=== PATIENT | male | born 1935 | race Caucasian/White ===

== ENCOUNTER 2018-09-22 14:12 | Day surgery (SDC) | payer MEDICARE, OTHER ==
[2018-09-22] VITALS (8 sets, daily range): BP systolic 89–159; BP diastolic 47–80
[~2018-09-22] VITALS: Ht 172.7 cm; Wt 75.6 kg
[2018-09-22] MEDS ORDERED: normal saline 1000ml 1,000 ML IV SCH (14:35)
[2018-09-22] MEDS ORDERED: diphenhydrAMINE 25mg capsule PO PRN (14:35)
[2018-09-22] MEDS ORDERED: LORazepam 0.5 MG tablet PO PRN (14:35)
[2018-09-22] MEDS ORDERED: LISI-600 PO (14:49)
[2018-09-22] MEDS ORDERED: ASPI-1265 PO (14:49)
[2018-09-22] MEDS ORDERED: ATOR20TA PO (14:49)
[2018-09-22] MEDS ORDERED: TERA10CA4 PO (14:49)
[2018-09-22] MEDS ORDERED: CLOP75TA15 PO (14:49)
[2018-09-22] MEDS ORDERED: FINA5TAB11 PO (14:49)
[2018-09-22 15:24] LABS: BASOPHILS % (AUTO) 0.3 % (0-1); EOSINOPHILS # (AUTO) 0.2 X10'3 (0-0.9); EOSINOPHILS % (AUTO) 2.5 % (0-6); HEMATOCRIT 37.5 % (42.0-52.0); HEMOGLOBIN 12.7 g/dl (14.0-17.9); LYMPHOCYTES # (AUTO) 1.2 X10'3 (1.1-4.8); LYMPHOCYTES % (AUTO) 18.9 % (21-51); MEAN CORPUSCULAR HEMOGLOBIN 31.3 PG (27.0-31.0); MEAN CORPUSCULAR HGB CONC 33.8 % (33.0-36.5); MEAN CORPUSCULAR VOLUME 92.6 FL (78-98); MEAN PLATELET VOLUME 7.1 FL (7.4-10.4); MONOCYTES # (AUTO) 0.6 X10'3 (0-0.9); NEUTROPHILS # (AUTO) 4.3 X10'3 (1.8-7.7); NEUTROPHILS % (AUTO) 68.3 % (42-75); PLATELET COUNT 237 X10'3 (140-440); RED BLOOD COUNT 4.05 X10'6 (4.70-6.10); RED CELL DISTRIBUTION WIDTH 12.8 % (11.5-14.5); WHITE BLOOD COUNT 6.3 X10'3 (4.5-11.0)
[2018-09-22 15:31] LABS: ANION GAP 11 (8-16); BLOOD UREA NITROGEN 16 MG/DL (7-18); BUN/CREATININE RATIO 21.3 (5.4-32.0); CALCIUM 9.5 MG/DL (8.5-10.1); CHLORIDE 97 MMOL/L (99-107); CREATININE 0.75 MG/DL (0.60-1.10); GLUCOSE 98 MG/DL (70-104); SODIUM 132 MMOL/L (135-145); eGFR > 90 ML/MIN
[2018-09-22 15:33] LABS: PROTHROMBIN TIME 10.4 SECONDS (9.0-12.0)
[2018-09-22] MEDS ORDERED: phenylephrine 10mg/ml inj. ONE (16:07)
[2018-09-22] MEDS ORDERED: iohexol 350 MG/ML 50ML vial IV ONE (16:08)
[2018-09-22] MEDS ORDERED: iohexol 350MG/ML 100ml bottle IV ONE (16:08)
[2018-09-22] MEDS ORDERED: heparin 1,000unit/ml 10ml vial 10 ML ONE (16:08)
[2018-09-22] MEDS ORDERED: atropine 0.1mg/ml 10ml syringe ONE (16:08)
[2018-09-22] MEDS ORDERED: DOPamine 400mg/D5W 250ml 250 ML IV ONE (16:08)
[2018-09-22] MEDS ORDERED: LIDOcaine 1% (10mg/ml)w/preservative injection 20ml MDV ONE (16:24)
[2018-09-22] MEDS ORDERED: hydrALAZINE 20mg/ml inj. IV ONE (16:41)
[2018-09-22] MEDS ORDERED: HYDROcodone/acetaminophen 5mg/325mg tablet PO PRN (17:20)
[2018-09-22] MEDS ORDERED: hydrALAZINE 20mg/ml inj. IV PRN (17:20)
[2018-09-22] MEDS ORDERED: HYDROcodone/acetaminophen 10/325mg tab PO PRN (17:20)
== END 2018-09-22 19:05 | disposition home or self-care (01) ==
LOC: SSTAY O 14:12
PROVIDERS: ATTEND Internal Medicine Interventional Cardiology
DX: I65.22 Occlusion and stenosis of left carotid artery (principal); I10 Essential (primary) hypertension; E78.5 Hyperlipidemia, unspecified; I70.0 Atherosclerosis of aorta; N40.0 Benign prostatic hyperplasia without lower urinary tract symptoms; Z72.89 Other problems related to lifestyle; Z92.21 Personal history of antineoplastic chemotherapy; Z87.01 Personal history of pneumonia (recurrent); Z85.818 Personal history of malignant neoplasm of other sites of lip, oral cavity, and pharynx; Z92.3 Personal history of irradiation; Z79.01 Long term (current) use of anticoagulants; Z79.82 Long term (current) use of aspirin; Z79.899 Other long term (current) drug therapy; Z87.891 Personal history of nicotine dependence; Z98.890 Other specified postprocedural states
CPT/HCPCS: 36222; 36415; 80048; 85025; 85610; A6257; C1760; J0360; J0461; J1265; J1644; J2001; J2370; J7030; Q0163; Q9967; 93005; A4620; C1769; C1894

== ENCOUNTER 2022-08-09 11:05 | Day surgery (SDC) | payer MEDICARE, OTHER ==
[2022-08-08 08:55] LABS: BASOPHILS % (AUTO) 0.4 % (0-1); EOSINOPHILS % (AUTO) 0.5 % (0-6); HEMATOCRIT 39.5 % (42.0-52.0); HEMOGLOBIN 13.8 g/dl (14.0-17.9); LYMPHOCYTES % (AUTO) 13.9 % (21-51); MEAN CORPUSCULAR HEMOGLOBIN 31.7 PG (27.0-31.0); MEAN CORPUSCULAR HGB CONC 34.9 g/dL (33.0-36.5); MEAN CORPUSCULAR VOLUME 90.8 FL (78-98); MEAN PLATELET VOLUME 6.4 FL (7.4-10.4); MONOCYTES # (AUTO) 0.7 X10'3 (0-0.9); MONOCYTES % (AUTO) 9.8 % (2-12); NEUTROPHILS # (AUTO) 5.5 X10'3 (1.8-7.7); NEUTROPHILS % (AUTO) 75.4 % (42-75); PLATELET COUNT 208 X10'3 (140-440); RED BLOOD COUNT 4.36 X10'6 (4.70-6.10); RED CELL DISTRIBUTION WIDTH 13.6 % (11.5-14.5); WHITE BLOOD COUNT 7.3 X10'3 (4.5-11.0)
[2022-08-08 09:03] LABS: ALBUMIN 4.3 G/DL (3.4-5.0); ANION GAP 5 (8-16); BLOOD UREA NITROGEN 15 MG/DL (7-18); BUN/CREATININE RATIO 17.6 (5.4-32.0); CALCIUM 9.5 MG/DL (8.5-10.1); CHLORIDE 96 MMOL/L (99-107); CHOL/HDL RATIO 1.9 (0.00-4.99); CHOLESTEROL 132 MG/DL (0-200); CREATININE 0.85 MG/DL (0.60-1.10); GLUCOSE 110 MG/DL (70-104); HDL CHOLESTEROL 71 MG/DL (35-60); LDL CHOLESTEROL 51 MG/DL (50-100); POTASSIUM 4.7 MMOL/L (3.5-5.1); SODIUM 130 MMOL/L (135-145); TOTAL CARBON DIOXIDE 28.9 MMOL/L (24-32); TRIGLYCERIDES 39 MG/DL (20-135); eGFR 85 ML/MIN
[2022-08-08 09:16] LABS: APTT 28 SECONDS (22-32)
[~2022-08-09] VITALS: Ht 172.7 cm; Wt 69.0 kg
[2022-08-09] VITALS (10 sets, daily range): BP systolic 138–165; BP diastolic 74–93
[~2022-08-09 11:05] MED LIST: ASPI-1265 PO; ATOR20TA PO; CLOP75TA15 PO; FINA5TAB11 PO; LISI20TA28 PO; TERA10CA4 PO
[2022-08-09] MEDS ORDERED: LORazepam 0.5 MG tablet PO PRN (11:20)
[2022-08-09] MEDS ORDERED: normal saline 1,000 ML IV SCH (11:20)
[2022-08-09] MEDS ORDERED: diphenhydrAMINE 25mg capsule PO PRN (11:20)
[2022-08-09] MEDS ORDERED: verapamil 2.5 mg/ml inj IV ONE (14:08)
[2022-08-09] MEDS ORDERED: LIDOcaine 1% (10mg/ml) 2ml vial ONE ×2 (14:08→14:14)
[2022-08-09] MEDS ORDERED: fentaNYL/PF 50MCG/1 ML 2ML syringe ONE (14:08)
[2022-08-09] MEDS ORDERED: midazolam 1 mg/ML 2ml injection ONE (14:08)
[2022-08-09] MEDS ORDERED: heparin 1,000unit/ml 10ml vial 10 ML ONE (14:08)
[2022-08-09] MEDS ORDERED: nitroGLYCERIN-Tridil 50MG/D5W 250 ML IV ONE (14:08)
[2022-08-09] MEDS ORDERED: iohexol 350MG/ML 100ml bottle IV ONE (14:09)
[2022-08-09] MEDS ORDERED: HYDROcodone/acetaminophen 10/325mg tab PO PRN (16:50)
[2022-08-09] MEDS ORDERED: HYDROcodone/acetaminophen 5mg/325mg tablet PO PRN (16:50)
[2022-08-12 08:26] LABS: ISTAT HGB ART 11.6 g/dl (14.0-17.9); ISTAT Hct ART 34 %PCV (42-52); ISTAT O2 SATURATION ARTERIAL 95 % (95-98); ISTAT SOURCE ART
[2022-08-12 08:26] LABS: ISTAT Hct MIX 36 %PCV (42-52); ISTAT O2 SATURATION MIX VENOUS 73 % (60-80); ISTAT SOURCE VEN
== END 2022-08-09 18:40 | disposition home or self-care (01) ==
LOC: SSTAY O 11:05
PROVIDERS: ATTEND Student in an Organized Health Care Education/Training Program
DX: I35.0 Nonrheumatic aortic (valve) stenosis (principal); I25.10 Atherosclerotic heart disease of native coronary artery without angina pectoris; I10 Essential (primary) hypertension; E78.5 Hyperlipidemia, unspecified; Z79.01 Long term (current) use of anticoagulants; Z79.899 Other long term (current) drug therapy
CPT/HCPCS: 36415; 80048; 80061; 82803; 85014; 85025; 85610; 85730; 93005; 93456; 99152; C1769; C1894; J1644; J2250; J3010; J3490; J7030; Q0163; Q9967; 99153; A4620; A6258; A6449; C1751

== ENCOUNTER 2022-10-16 12:01 | Outpatient (CLI) | payer MEDICARE, OTHER ==
[~2022-10-16 12:01] MED LIST changes: -CLOP75TA15 PO
[2022-10-16 12:45] LABS: APTT 29 SECONDS (22-32); BASOPHILS % (AUTO) 0.6 % (0-1); EOSINOPHILS # (AUTO) 0.1 X10'3 (0-0.9); EOSINOPHILS % (AUTO) 1.1 % (0-6); HEMATOCRIT 35.8 % (42.0-52.0); HEMOGLOBIN 12.2 g/dl (14.0-17.9); LYMPHOCYTES # (AUTO) 0.8 X10'3 (1.1-4.8); LYMPHOCYTES % (AUTO) 12.3 % (21-51); MEAN CORPUSCULAR HEMOGLOBIN 31.3 PG (27.0-31.0); MEAN PLATELET VOLUME 6.5 FL (7.4-10.4); MONOCYTES # (AUTO) 0.7 X10'3 (0-0.9); MONOCYTES % (AUTO) 11.7 % (2-12); NEUTROPHILS # (AUTO) 4.5 X10'3 (1.8-7.7); NEUTROPHILS % (AUTO) 74.3 % (42-75); PLATELET COUNT 185 X10'3 (140-440); RED BLOOD COUNT 3.89 X10'6 (4.70-6.10); RED CELL DISTRIBUTION WIDTH 13.6 % (11.5-14.5); WHITE BLOOD COUNT 6.1 X10'3 (4.5-11.0)
[2022-10-16] MEDS ORDERED: IODIXANOL 320 MG/ML INFUS..BTL 100ML IV ONE (12:45)
[2022-10-16 12:47] LABS: ALANINE AMINOTRANSFERASE 15 U/L (12-78); ALBUMIN/GLOBULIN RATIO 1.2 (1.1-1.5); ALKALINE PHOSPHATASE 102 IU/L (46-116); ANION GAP 6 (8-16); ASPARTATE AMINO TRANSFERASE 24 U/L (10-37); BILIRUBIN,TOTAL 0.7 MG/DL (0.1-1.0); BLOOD UREA NITROGEN 16 MG/DL (7-18); CALCIUM 9.1 MG/DL (8.5-10.1); CHLORIDE 97 MMOL/L (99-107); CREATININE 0.84 MG/DL (0.60-1.10); GLUCOSE 113 MG/DL (70-104); POTASSIUM 4.6 MMOL/L (3.5-5.1); SODIUM 130 MMOL/L (135-145); TOTAL CARBON DIOXIDE 27.2 MMOL/L (24-32); TOTAL PROTEIN 7.3 G/DL (6.4-8.2); eGFR 86 ML/MIN
[2022-10-16] MEDS ORDERED: metoprolol tartrate 1mg/ml inj IV ONE (13:19)
[2022-10-16 13:20] VITALS: BP 134/70
[2022-10-16 13:30] VITALS: BP 129/94
== END 2022-10-16 23:59 | disposition home or self-care (01) ==
LOC: RAD 12:01
PROVIDERS: ATTEND Internal Medicine Cardiovascular Disease
DX: Z01.818 Encounter for other preprocedural examination (principal); M47.815 Spondylosis without myelopathy or radiculopathy, thoracolumbar region; J84.10 Pulmonary fibrosis, unspecified; J92.9 Pleural plaque without asbestos; I35.0 Nonrheumatic aortic (valve) stenosis; I65.29 Occlusion and stenosis of unspecified carotid artery; Z87.891 Personal history of nicotine dependence; Z79.899 Other long term (current) drug therapy
CPT/HCPCS: 36415; 71046; 71275; 74174; 80053; 85025; 85610; 85730; 94010; 94727; 94729; J3490; Q9967

== ENCOUNTER 2022-11-21 06:30 | Inpatient (IN) | payer MEDICARE, OTHER ==
[2022-11-14 10:43] LABS: CLARITY,URINE CLOUDY (Clear); COLOR,URINE YELLOW (Yellow); GLUCOSE, URINE NEGATIVE (Neg); KETONES,URINE NEGATIVE (Neg); LEUKOCYTE ESTERASE ,URINE NEGATIVE (Neg); NITRITES, URINE NEGATIVE (Neg); OCCULT BLOOD,URINE NEGATIVE (Neg); PROTEIN,URINE NEGATIVE (Neg)
[2022-11-14 10:44] LABS: UA COLLECTION TYPE VOIDED
[2022-11-14 10:45] LABS: BASOPHILS % (AUTO) 0.6 % (0-1); EOSINOPHILS # (AUTO) 0.1 X10'3 (0-0.9); EOSINOPHILS % (AUTO) 1.1 % (0-6); LYMPHOCYTES # (AUTO) 0.7 X10'3 (1.1-4.8); LYMPHOCYTES % (AUTO) 11.6 % (21-51); MEAN CORPUSCULAR HEMOGLOBIN 30.6 PG (27.0-31.0); MEAN CORPUSCULAR HGB CONC 34.5 g/dL (33.0-36.5); MEAN CORPUSCULAR VOLUME 88.7 FL (78-98); MEAN PLATELET VOLUME 6.4 FL (7.4-10.4); MONOCYTES # (AUTO) 0.7 X10'3 (0-0.9); NEUTROPHILS # (AUTO) 4.5 X10'3 (1.8-7.7); NEUTROPHILS % (AUTO) 75.7 % (42-75); PRE OP HEMATOCRIT 34.9 % (42.0-52.0); PRE OP HEMOGLOBIN 12.1 g/dL (14.0-17.9); PRE OP PLATELET COUNT 245 X10'3 (140-440); RED BLOOD COUNT 3.93 X10'6 (4.70-6.10); RED CELL DISTRIBUTION WIDTH 12.7 % (11.5-14.5)
[2022-11-14 10:51] LABS: MUCUS STRANDS MANY /LPF (Neg); SQUAMOUS EPITHELIAL CELL,UR FEW /LPF (FEW)
[2022-11-14 10:52] LABS: RBC,URINE 0-2 /HPF (0-2); WBC,URINE 0-4 /HPF (0-4)
[2022-11-14 10:53] LABS: BACTERIA,URINE FEW /HPF (Neg)
[2022-11-14 11:00] LABS: ALBUMIN 3.7 G/DL (3.4-5.0); ALBUMIN/GLOBULIN RATIO 1.1 (1.1-1.5); ALKALINE PHOSPHATASE 110 IU/L (46-116); BLOOD UREA NITROGEN 18 MG/DL (7-18); BUN/CREATININE RATIO 22.8 (5.4-32.0); CALCIUM 9.4 MG/DL (8.5-10.1); CHLORIDE 97 MMOL/L (99-107); CREATININE 0.79 MG/DL (0.60-1.10); PRE OP ALT 24 U/L (30-65); PRE OP ANION GAP 6 (8-16); PRE OP AST 30 U/L (10-37); PRE OP BILIRUB, TOTAL 0.7 MG/DL (0.0-1.0); PRE OP GLUCOSE 129 MG/DL (70-104); PRE OP POTASSIUM 4.1 MMOL/L (3.4-5.1); PRE OP SODIUM 131 MMOL/L (135-145); TOTAL CARBON DIOXIDE 28.2 MMOL/L (24-32); TOTAL PROTEIN 7.1 G/DL (6.4-8.2); eGFR > 90 ML/MIN
[2022-11-14 11:28] LABS: PRE OP INR 1.1 INR; PRE OP PROTIME 11.3 SECONDS (9.0-12.0)
[2022-11-21] VITALS (18 sets, daily range): BP systolic 123–177; BP diastolic 54–79
[~2022-11-21] VITALS: Ht 172.7 cm; Wt 63.2 kg
[~2022-11-21 06:30] MED LIST changes: -ASPI-1265 PO; +LEVO25TA7 PO; +aspirin 325mg tablet PO ONE; +cefazolin/dext.iso 2gm/50ml 50 ML IV ONE; +famotidine 20mg tablet PO ONE; +nitroPRUSSIDE (NIPRIDE) (200MCG/ML) 100ML Drip IV SCH; +ondansetron/PF 4mg/2ml inj IV PRN; +phenylephrine inj 50 MG in normal saline 250ml IV solN IV SCH; +ringers solution, lacted 1,000 ML IV SCH; +vancomycin/NS 1 GM ADD-VANTAGE 250 ML IV ONE
[2022-11-21] MEDS ORDERED: LIDOcaine 1% (10mg/ml) 2ml vial ONE ×2 (06:49→07:27)
[2022-11-21] MEDS ORDERED: protamine sulfate 10mg/ml inj. ONE ×2 (07:48→10:13)
[2022-11-21 08:01] LABS: ISTAT ANION GAP 11 (8-12); ISTAT BUN 13 mg/dL (7-18); ISTAT CL 98 mmol/L (99-107); ISTAT CREATININE 0.7 mg/dL (0.8-1.3); ISTAT GLUCOSE 96 mg/dL (70-104); ISTAT HGB 10.9 g/dl (14.0-17.9); ISTAT Hct 32 %PCV (42-52); ISTAT IONIZED CALCIUM 1.22 mmol/L (1.03-1.32); ISTAT K 3.9 mmol/L (3.5-5.1); ISTAT NA 134 mmol/L (135-145); ISTAT TOTAL CO2 25 mmol/L (24-32); ISTAT eGFR > 90 ML/MIN; POC BUN/CREATININE RATIO 18.6 (5.4-32.0)
[2022-11-21] MEDS ORDERED: iohexol 350MG/ML 100ml bottle IV ONE (08:32)
[2022-11-21] MEDS ORDERED: heparin 1,000 UNITS/NS 500ml 1,500 ML ONE (08:32)
[2022-11-21] MEDS ORDERED: LIDOcaine 1% 30ml preserv. free vial ONE (08:33)
[2022-11-21] MEDS ORDERED: fentaNYL/PF 50MCG/1 ML 2ML syringe ONE (08:41)
[2022-11-21] MEDS ORDERED: midazolam 1 mg/ML 2ml injection ONE ×2 (08:42→09:03)
[2022-11-21] MEDS ORDERED: propofol inj 20 ML IV ONE ×2 (08:59)
[2022-11-21] MEDS ORDERED: 0.9 % SODIUM CHLORIDE 10 ML VIAL ONE ×2 (08:59→09:16)
[2022-11-21] MEDS ORDERED: ePHEDrine 50MG/ML INJ. ONE (09:16)
[2022-11-21] MEDS ORDERED: proCHLORperazine 10 MG/2 ml inj IV PRN ×2 (09:50→10:05)
[2022-11-21] MEDS ORDERED: acetaminophen 325mg tablet PO PRN (09:50)
[2022-11-21] MEDS: normal saline 1000ml 1,000 ML IV SCH (09:50)
[2022-11-21] MEDS ORDERED: hydrALAZINE 20mg/ml inj. IV PRN ×2 (09:50→10:05)
[2022-11-21] MEDS ORDERED: potassium Cl 20 mEq SR tablet PO PRN (09:50)
[2022-11-21] MEDS ORDERED: potassium CL 10mEq/100ml bag 100 ML IV PRN (09:50)
[2022-11-21] MEDS ORDERED: potassium Cl 40MEQ/1/2NS 520ml 520 ML IV PRN (09:50)
[2022-11-21] MEDS ORDERED: pantoprazole 40mg Tablet.DR PO PRN (09:50)
[2022-11-21] MEDS ORDERED: potassium Cl 40MEQ/270ML bag 250 ML IV PRN (09:50)
[2022-11-21] MEDS ORDERED: magnesium 2GM in 50ml NS 50 ML IV PRN (09:50)
[2022-11-21] MEDS ORDERED: ondansetron/PF 4mg/2ml inj IV PRN ×2 (09:50→10:05)
[2022-11-21] MEDS ORDERED: ALPRAZolam 0.25mg tablet PO PRN (09:50)
[2022-11-21] MEDS ORDERED: potassium Cl 20mEq/100mL bag 100 ML IV PRN (09:50)
[2022-11-21] MEDS ORDERED: diphenhydrAMINE 25mg capsule PO PRN (09:50)
[2022-11-21] MEDS ORDERED: HYDROcodone/acetaminophen 5mg/325mg tablet PO PRN (09:50)
[2022-11-21] MEDS ORDERED: magnesium 4gm in 100ml NS 100 ML IV PRN (09:50)
[2022-11-21] MEDS ORDERED: docusate sod 100mg capsule PO PRN (09:50)
[2022-11-21] MEDS ORDERED: labetalol 20mg/4ml (5mg/ml) syringe IV PRN ×2 (09:50→10:05)
[2022-11-21] MEDS ORDERED: ringers solution, lacted 1,000 ML IV SCH (10:05)
[2022-11-21] MEDS ORDERED: morphine 2 MG/ML inj. syringe IV PRN (10:05)
[2022-11-21] MEDS ORDERED: meperidine/PF 25mg/ml syringe IV PRN ×3 (10:05)
[2022-11-21] MEDS ORDERED: acetaminophen 1,000mg/100ml IV 100 ML IV PRN (10:05)
[2022-11-21] MEDS ORDERED: morphine 4 MG/ML inj SYRINge IV PRN (10:05)
--- NOTE | 2022-11-21 10:06 | NUR ---
Received from OR via SURGICAL BED , accompanied by Anesthesiologist YANICK and report given by Anesthesiolgist. PATIENT WITH 20G PIV IN RIGHT UE AWELL A ART LINE IN LEFT UE. PATIENT WITH BILATERAL INGUINAL DRESSINGS THAT ARE CDI. PATIENT WITH + DPS AND PTS. Addendum: 11/21/22 at 1029 by Marcus Beckham RN, RN Amended: Links added.
[2022-11-21] MEDS ORDERED: ASPI81TA53 PO (10:38)
--- NOTE | 2022-11-21 11:04 | NUR ---
REPORT GIVEN AND ALL QUESTIONS ANSWERED. PATIENT TRANSFERRED TO PCU LABELED BELONGINGS PRESENT AND DELIVERED TO ROOM. RN PRESENT ALL CRITERIA FOR TRANSFER BACK TO THE FLOOR HAS BEEN ACHIEVED. VSS. PAIN AT A TOLERABLE LEVEL. BED LOW, CALL LIGHT PRESENT AND 2 RAILS DOWN. RN AWARE THAT PATIENT HAS ARRIVED. TO ACCEPT CARE OF PATIENT. DAUGHTER BROUGHT UP TO THE FLOOR WITH US. BELONGINGS BROUGHT UP WELL AND GLASSES ON PATIENT. MALI ARCOS PRESENT TO ASSESS PULSES AND GROIN SITES THAT ARE CDI. NEUROLOGICALLY INTACT WITH PUSH PULLS KEY PERSON AND SMILE IS SYMMETRICAL AND TONGUE STILL MIDLINE. Addendum: 11/21/22 at 1128 by Marcus Godoy - MALI SAMSON Amended: Links added.
[2022-11-21] MEDS: sod chloride 0.9% 10ml flush syringe IV SCH (16:07)
[2022-11-21] MEDS: ceFAZolin 1GM/D5W- ADD-VANTAGE 50 ML IV SCH (16:07)
--- NOTE | 2022-11-21 17:48 | NUR ---
PT AMBULATED 50 FEET WITH NURSE.
--- NOTE | 2022-11-21 18:32 | NUR ---
Problems reprioritized. Patient report given, questions answered & plan of care reviewed with MALI GORMAN.
[2022-11-21] MEDS: vancomycin/NS 1 GM ADD-VANTAGE 250 ML IV SCH (20:26)
[2022-11-21] MEDS ORDERED: lisinopril 20mg tablet PO SCH (21:00)
[2022-11-21] MEDS ORDERED: terazosin 5mg capsule PO SCH (21:00)
[2022-11-21] MEDS ORDERED: atorvastatin 20mg tablet PO SCH (21:00)
[2022-11-22] MEDS: ceFAZolin 1GM/D5W- ADD-VANTAGE 50 ML IV SCH ×2 (00:42→09:23)
[2022-11-22] MEDS: normal saline 1000ml 1,000 ML IV SCH ×2 (00:45→05:50)
[2022-11-22 02:00] VITALS: BP 128/52
[2022-11-22 06:30] VITALS: BP 139/72
[2022-11-22 06:42] LABS: BASOPHILS % (AUTO) 0.5 % (0-1); EOSINOPHILS % (AUTO) 0.5 % (0-6); HEMOGLOBIN 10.4 g/dl (14.0-17.9); LYMPHOCYTES # (AUTO) 0.4 X10'3 (1.1-4.8); LYMPHOCYTES % (AUTO) 4.6 % (21-51); MEAN CORPUSCULAR HEMOGLOBIN 31.3 PG (27.0-31.0); MEAN CORPUSCULAR HGB CONC 34.7 g/dL (33.0-36.5); MEAN CORPUSCULAR VOLUME 90.1 FL (78-98); MEAN PLATELET VOLUME 7.4 FL (7.4-10.4); MONOCYTES # (AUTO) 0.8 X10'3 (0-0.9); MONOCYTES % (AUTO) 9.3 % (2-12); NEUTROPHILS # (AUTO) 7.5 X10'3 (1.8-7.7); NEUTROPHILS % (AUTO) 85.1 % (42-75); PLATELET COUNT 119 X10'3 (140-440); RED BLOOD COUNT 3.34 X10'6 (4.70-6.10); RED CELL DISTRIBUTION WIDTH 13.5 % (11.5-14.5); WHITE BLOOD COUNT 8.8 X10'3 (4.5-11.0)
[2022-11-22 07:07] LABS: ALANINE AMINOTRANSFERASE 18 U/L (12-78); ALBUMIN/GLOBULIN RATIO 1.1 (1.1-1.5); ALKALINE PHOSPHATASE 78 IU/L (46-116); ANION GAP 7 (8-16); ASPARTATE AMINO TRANSFERASE 40 U/L (10-37); BILIRUBIN,TOTAL 0.8 MG/DL (0.1-1.0); BLOOD UREA NITROGEN 15 MG/DL (7-18); BUN/CREATININE RATIO 25.9 (5.4-32.0); CALCIUM 8.4 MG/DL (8.5-10.1); CHLORIDE 102 MMOL/L (99-107); CREATININE 0.58 MG/DL (0.60-1.10); GLUCOSE 103 MG/DL (70-104); MAGNESIUM 1.8 MG/DL (1.5-2.4); POTASSIUM 3.8 MMOL/L (3.5-5.1); SODIUM 133 MMOL/L (135-145); TOTAL CARBON DIOXIDE 24.2 MMOL/L (24-32); TOTAL PROTEIN 5.8 G/DL (6.4-8.2); eGFR > 90 ML/MIN
[2022-11-22] MEDS ORDERED: levoTHYROXINE 25mcg tablet PO SCH (08:00)
[2022-11-22] MEDS ORDERED: finasteride 5mg tablet PO SCH (08:00)
[2022-11-22] MEDS: sod chloride 0.9% 10ml flush syringe IV SCH ×2 (08:00)
[2022-11-22] MEDS ORDERED: aspirin 81mg tab.chew PO SCH (08:30)
[2022-11-22] MEDS: vancomycin/NS 1 GM ADD-VANTAGE 250 ML IV SCH (10:01)
[2022-11-22 10:30] VITALS: BP 136/51
--- NOTE | 2022-11-22 14:23 | NUR ---
PT STABLE FOR DC PER MD ORDERS. ALL DC PPWK WAS REV'D WITH PATIENT AND PATIENT FAMILY. ALL QUESTIONS, COMMENTS, AND CONCERNS WERE ANSWERED AT THIS TIME. ALL PERSONAL BELONGINGS WERE SENT WITH PATIENT. REV'D ALL FOLLOW UP APPTS AND REITERATED THE IMPORTANCE OF FOLLOW UP. THEY VERBALIZED UNDERSTANDING. PIV WAS REMOVED - PT TOLERATED WELL. PT WAS WHEELED OUT TO DAUGHTER CAR IN W/C BY NURSING STAFF.
--- NOTE | 2022-11-22 19:50 | NUR ---
Student documentation: I have reviewed and agree with all interventions, assessments performed and documented by Kimi.
--- NOTE | 2022-11-22 19:51 | NUR ---
Student Medication Administration: For this medication-pass time frame, all medication were reviewed, dispensed, administered and documented per hospital policy by .
== END 2022-11-22 15:33 | disposition home or self-care (01) | DRG 267 ==
LOC: UNDOADMIN 06:30 → PAS IN 06:30 → EDSTATUS 08:30 → PAS IN 09:48 → PCU 3S 11:19
PROVIDERS: ADMIT Internal Medicine Cardiovascular Disease; ATTEND Internal Medicine Cardiovascular Disease
PROC: B41D1ZZ Fluoroscopy of Aorta and Bilateral Lower Extremity Arteries using Low Osmolar Contrast (ICD-10-PCS; 2022-11-21)
PROC: 02RF38Z Replacement of Aortic Valve with Zooplastic Tissue, Percutaneous Approach (ICD-10-PCS; principal; 2022-11-21 08:34)
DX: I35.0 Nonrheumatic aortic (valve) stenosis (principal); Z00.6 Encounter for examination for normal comparison and control in clinical research program; I50.22 Chronic systolic (congestive) heart failure; E78.5 Hyperlipidemia, unspecified; I11.0 Hypertensive heart disease with heart failure; I25.10 Atherosclerotic heart disease of native coronary artery without angina pectoris; Z79.82 Long term (current) use of aspirin; Z79.899 Other long term (current) drug therapy
CPT/HCPCS: 33361; 36415; 71045; 71046; 76937; 80047; 80053; 81001; 82948; 83735; 83880; 84443; 85025; 85347; 85610; 85730; 86885; 86900; 86901; 86920; 87081; 93005; 93308; A4618; A6258; A6449; C1756; C1760; C1769; C1894; G0378; J0690; J1644; J2250; J2370; J2704; J2720; J3010; J3370; J3490; J7030; J7040; J7050; J7120; Q9967